=== PATIENT | female | born 1930 | race Caucasian/White ===

== ENCOUNTER → 2018-01-18 | Emergency (ER) | payer OTHER ==
[~2018-01-18] VITALS: Ht 149.9 cm; Wt 48.5 kg
[~2018-01-18] MED LIST: ANTIVERT25 M1 PO; CARDIZEM120 MG; DICLOFENAC SODI50 MG PO; DIOVAN160 M1 PO; ENALAPRIL MALEA10 MG; FOSAMAX70 MG; GLUCOPHAGE XR500 MG PO; GLUCOTROL10 MG PO; HUMULIN 70/30 V10 ML SC; LOPID PO; MEDROLPACK PO; ONGLIZA PO; PLAVIX75 MG PO; PRILOSEC40 MG; SIMVASTATIN40 MG; ZANTAC300 MG PO; [UNRECOGNIZED DRUG - OTHER]; [UNRECOGNIZED DRUG - OTHER] PO
== END | disposition home or self-care (01) ==
LOC: ER 13:10 → EDBD 13:12
DX: M25.552 Pain in left hip (principal); M54.5 Low back pain

== ENCOUNTER 2019-02-20 12:05 | Outpatient (CLI) | payer OTHER | END 2019-02-20 13:33 | disposition home or self-care (01) | LOC: NUCLEAR 12:05 | DX: I87.2 Venous insufficiency (chronic) (peripheral) (principal) ==

== ENCOUNTER 2019-05-20 13:05 | Emergency (ER) | payer OTHER ==
[~2019-05-20] VITALS: Ht 121.9 cm; Wt 48.5 kg
== END 2019-05-20 16:39 | disposition home or self-care (01) ==
LOC: ER 13:05
DX: M54.5 Low back pain (principal)

== ENCOUNTER 2020-02-17 18:11 | Emergency (ER) | payer OTHER ==
[~2020-02-17] VITALS: Ht 152.4 cm; Wt 61.2 kg
[2020-02-17] MEDS ORDERED: GEMFIBROZIL600 MG (18:42)
[2020-02-17] MEDS ORDERED: DILTIAZEM ER300 M2 (18:43)
[2020-02-17] MEDS ORDERED: FOLIC ACID0.8 M1 (18:43)
[2020-02-17] MEDS ORDERED: GNP ANTACID-AN1 EACH (18:43)
[2020-02-17] MEDS ORDERED: SULINDAC150 MG (18:44)
[2020-02-17] MEDS ORDERED: COZAAR50 MG (18:44)
[2020-02-17] MEDS ORDERED: METFORMIN HCL500 M3 (18:44)
== END 2020-02-17 21:57 | disposition home or self-care (01) ==
LOC: ER 18:11
DX: M13.88 Other specified arthritis, other site (principal); K29.60 Other gastritis without bleeding; N39.0 Urinary tract infection, site not specified; D64.89 Other specified anemias; M54.5 Low back pain